=== PATIENT | male | born 2000 | race Caucasian/White ===

== ENCOUNTER 2020-08-02 20:59 | Emergency (ER) | payer OTHER, BC ==
[~2020-08-02] VITALS: Ht 180.3 cm; Wt 68.0 kg
== END 2020-08-02 23:24 | disposition home or self-care (01) ==
LOC: ED 20:59
DX: S43.015A Anterior dislocation of left humerus, initial encounter (principal); S43.035A Inferior dislocation of left humerus, initial encounter; Z88.2 Allergy status to sulfonamides; X50.0XXA Overexertion from strenuous movement or load, initial encounter; Y93.89 Activity, other specified; Y92.89 Other specified places as the place of occurrence of the external cause; Y99.8 Other external cause status